=== PATIENT | female | born 1970 | race African-American/Black ===

== ENCOUNTER 2016-10-25 12:28 | Emergency (ER) | payer SELFPAY ==
[~2016-10-25] VITALS: Ht 162.6 cm; Wt 114.9 kg
[~2016-10-25 12:28] MED LIST: ATIVAN 0.50.5 MG/TAB PO; FLEXERIL 1010 MG/TAB PO; IBU600 MG PO; MULTIVITAMIN1 CTB PO; NAPROSYN500 MG PO; NORCO 325 MG-51 TAB PO; ULTRAM 50MG TAB50 MG PO
[2016-10-25 12:30] VITALS: BP 132/77; PULSE 86; TEMP 97.9
[2016-10-25 13:30] LABS: PH 5 (5-8); URINE APPEARANCE Hazy; URINE BACTERIA None Seen /hpf; URINE BILIRUBIN Negative (NEGATIVE); URINE BLOOD 1+ (NEGATIVE); URINE COLOR Yellow; URINE GLUCOSE Negative (NEGATIVE); URINE KETONE Negative (NEGATIVE)
[2016-10-25] MEDS ORDERED: FLEXERIL 1010 MG/TAB PO (14:02)
[2016-10-25] MEDS ORDERED: NORCO 325 MG-51 TAB PO (14:12)
== END 2016-10-25 14:21 | disposition home or self-care (01) ==
LOC: COL.ER 12:28
PROVIDERS: Physician Assistant
DX: M54.5 Low back pain (principal); R31.9 Hematuria, unspecified; M62.830 Muscle spasm of back; F17.210 Nicotine dependence, cigarettes, uncomplicated
CPT/HCPCS: J1885; J2360

== ENCOUNTER 2017-02-10 15:48 | Emergency (ER) | payer SELFPAY ==
[~2017-02-10] VITALS: Ht 162.6 cm; Wt 106.8 kg
[2017-02-10 15:54] VITALS: BP 125/72; TEMP 99
[2017-02-10 17:07] VITALS: PULSE 80
== END 2017-02-10 17:09 | disposition home or self-care (01) ==
LOC: COL.ER 15:48
DX: J11.1 Influenza due to unidentified influenza virus with other respiratory manifestations (principal); F17.210 Nicotine dependence, cigarettes, uncomplicated; Z98.890 Other specified postprocedural states

== ENCOUNTER 2017-05-27 07:22 | Emergency (ER) | payer SELFPAY ==
[~2017-05-27] VITALS: Ht 162.6 cm; Wt 93.6 kg
[2017-05-27 07:29] VITALS: TEMP 98.3
[2017-05-27] MEDS ORDERED: MIRALAX PA17 GM/Dose PO (08:03)
[2017-05-27 08:25] LABS: COLLECTION METHOD CLEAN CATCH
[2017-05-27 08:29] LABS: BASO % 0.4 % (0.0-2.0); EOS # 0.2 (0.0-0.7); EOS % 2.5 % (0-4.0); GRAN # 5.1 (1.4-6.5); GRAN % 71.3 % (42.2-75.2); HEMATOCRIT 38.3 % (37.0-47.0); HEMOGLOBIN 12.4 g/dl (12.5-16.0); LYMPH # 1.5 (1.2-3.4); LYMPH % 21.2 % (20.0-51.0); MEAN CELL VOLUME 102 fl (80.0-100.0); MEAN CORPUSCULAR HEMOGLOBIN 33 pg (27.0-31.0); MEAN CORPUSCULAR HGB CONC 32 g/dl (33.0-37.0); MONO # 0.3 (0.1-0.6); MONO % 4.5 % (1.7-9.3); PLATELET COUNT 212 K/mm3 (130-400); RED BLOOD COUNT 3.75 M/mm3 (4.10-5.30); REDCELL DISTRIBUTION WIDTH-CV 12.8 % (11.5-14.5)
[2017-05-27 08:37] LABS: MUCOUS Present /lpf; PH 5 (5-8); URINE APPEARANCE Hazy; URINE BACTERIA None Seen /hpf; URINE BILIRUBIN Negative (NEGATIVE); URINE BLOOD Negative (NEGATIVE); URINE COLOR Yellow; URINE GLUCOSE Negative (NEGATIVE); URINE KETONE Trace (NEGATIVE); URINE LEUKOCYTE ESTERASE Negative (NEGATIVE); URINE NITRATE Negative (NEGATIVE); URINE PROTEIN(semi-quant) Negative (NEGATIVE); URINE RBC 0-2 /hpf; URINE UROBILINOGEN >=4.0 mg/dL (NEGATIVE)
[2017-05-27 08:43] LABS: ALANINE AMINOTRANSFERASE 21 U/L (9-52); ALBUMIN 3.8 gm/dL (3.5-5.0); ALKALINE PHOSPHATASE 78 U/L (50-136); ANION GAP 11 mmol/L (7-16); AST,SGOT 18 U/L (15-37); BILIRUBIN,TOTAL 0.2 mg/dL (0.0-1.0); BLOOD UREA NITROGEN 9 mg/dL (7-17); CARBON DIOXIDE 29 mmol/L (22-30); CHLORIDE 107 mmol/L (98-107); CREATININE, serum 0.98 mg/dL (0.52-1.25); GLUCOSE 70 mg/dL (74-106); POTASSIUM 3.7 mmol/L (3.4-5.0); SODIUM 147 mmol/L (137-145); TOTAL PROTEIN 7.4 gm/dL (6.4-8.2)
[2017-05-27 08:47] LABS: C-REACTIVE PROTEIN < 0.5 mg/dL (0.0-0.9)
[2017-05-27] MEDS ORDERED: CONSTULOSE 20G/30ML PO (10:05)
[2017-05-27 10:45] VITALS: BP 120/77; PULSE 79
== END 2017-05-27 11:00 | disposition home or self-care (01) ==
LOC: COL.ER 07:22
PROVIDERS: Emergency Medicine
DX: K59.00 Constipation, unspecified (principal); F17.210 Nicotine dependence, cigarettes, uncomplicated; F12.90 Cannabis use, unspecified, uncomplicated; Z98.890 Other specified postprocedural states; Z88.0 Allergy status to penicillin
CPT/HCPCS: J2765; J7030

== ENCOUNTER 2017-09-09 07:37 | Emergency (ER) | payer SELFPAY ==
[~2017-09-09] VITALS: Ht 162.6 cm; Wt 86.4 kg
[~2017-09-09 07:37] MED LIST changes: +CONSTULOSE 20G/30ML PO; +MIRALAX PA17 GM/Dose PO
[2017-09-09 08:33] LABS: BASO % 0.4 % (0.0-2.0); EOS # 0.2 (0.0-0.7); EOS % 3.4 % (0-4.0); GRAN % 53.6 % (42.2-75.2); HEMOGLOBIN 13.1 g/dl (12.5-16.0); LYMPH # 2.2 (1.2-3.4); LYMPH % 38.5 % (20.0-51.0); MEAN CELL VOLUME 98 fl (80.0-100.0); MEAN CORPUSCULAR HEMOGLOBIN 33 pg (27.0-31.0); MEAN CORPUSCULAR HGB CONC 34 g/dl (33.0-37.0); MEAN PLATELET VOLUME 9.7 fl (7.4-10.4); MONO # 0.2 (0.1-0.6); MONO % 3.9 % (1.7-9.3); PLATELET COUNT 203 K/mm3 (130-400); RED BLOOD COUNT 3.99 M/mm3 (4.10-5.30); REDCELL DISTRIBUTION WIDTH-CV 12.6 % (11.5-14.5)
[2017-09-09 08:46] LABS: ALANINE AMINOTRANSFERASE 21 U/L (9-52); ALKALINE PHOSPHATASE 58 U/L (50-136); ANION GAP 10 mmol/L (7-16); AST,SGOT 19 U/L (15-37); BILIRUBIN,TOTAL 0.5 mg/dL (0.0-1.0); BLOOD UREA NITROGEN 11 mg/dL (7-17); CALCIUM 9.6 mg/dL (8.4-10.2); CARBON DIOXIDE 28 mmol/L (22-30); CHLORIDE 105 mmol/L (98-107); CREATINE KINASE 96 U/L (30-135); CREATININE, serum 0.85 mg/dL (0.52-1.25); GLUCOSE 89 mg/dL (74-106); MAGNESIUM 1.8 mg/dL (1.6-2.3); PHOSPHOROUS 3.7 mg/dL (2.5-4.5); POTASSIUM 3.8 mmol/L (3.4-5.0); SODIUM 142 mmol/L (137-145); TOTAL PROTEIN 7.7 gm/dL (6.4-8.2)
[2017-09-09 08:50] LABS: ACETAMINOPHEN < 10 ug/mL (10-30); ALCOHOL(ethanol),MEDICAL < 10 mg/dL; SALICYLATE < 1.0 mg/dL
[2017-09-09 09:10] VITALS: TEMP 98
[2017-09-09 09:15] LABS: TSH w REFLEX 0.848 uIU/mL (0.465-4.680)
[2017-09-09] MEDS ORDERED: ATIVAN 1MG T1 MG/TAB PO (12:07)
[2017-09-09 12:15] VITALS: BP 126/97; PULSE 74
== END 2017-09-09 12:18 | disposition home or self-care (01) ==
LOC: COL.ER 07:37
PROVIDERS: Emergency Medicine
DX: F31.9 Bipolar disorder, unspecified (principal); F12.90 Cannabis use, unspecified, uncomplicated
CPT/HCPCS: J7030

== ENCOUNTER 2017-10-24 16:01 | Emergency (ER) | payer SELFPAY ==
[~2017-10-24] VITALS: Ht 162.6 cm; Wt 95.5 kg
[~2017-10-24 16:01] MED LIST changes: +ATIVAN 1MG T1 MG/TAB PO
[2017-10-24 16:02] VITALS: TEMP 98.1
[2017-10-24] MEDS ORDERED: FLEXERIL 1010 MG/TAB PO (17:06)
[2017-10-24 17:15] VITALS: BP 120/94; PULSE 97
== END 2017-10-24 17:29 | disposition home or self-care (01) ==
LOC: COL.ER 16:01
DX: S09.90XA Unspecified injury of head, initial encounter (principal); S00.03XA Contusion of scalp, initial encounter; M54.2 Cervicalgia; K50.90 Crohn's disease, unspecified, without complications; W20.8XXA Other cause of strike by thrown, projected or falling object, initial encounter

== ENCOUNTER 2017-11-28 17:11 | Emergency (ER) | payer SELFPAY ==
[~2017-11-28] VITALS: Ht 162.6 cm; Wt 92.7 kg
[2017-11-28 19:56] LABS: BASO % 0.3 % (0.0-2.0); EOS # 0.2 (0.0-0.7); EOS % 2.8 % (0-4.0); GRAN # 3.6 (1.4-6.5); GRAN % 47.9 % (42.2-75.2); HEMATOCRIT 38.6 % (37.0-47.0); HEMOGLOBIN 12.9 g/dl (12.5-16.0); LYMPH # 3.2 (1.2-3.4); LYMPH % 42.9 % (20.0-51.0); MEAN CELL VOLUME 98 fl (80.0-100.0); MEAN CORPUSCULAR HEMOGLOBIN 33 pg (27.0-31.0); MEAN CORPUSCULAR HGB CONC 33 g/dl (33.0-37.0); MEAN PLATELET VOLUME 9.6 fl (7.4-10.4); MONO # 0.4 (0.1-0.6); MONO % 5.8 % (1.7-9.3); PLATELET COUNT 198 K/mm3 (130-400); RED BLOOD COUNT 3.93 M/mm3 (4.10-5.30); REDCELL DISTRIBUTION WIDTH-CV 12.4 % (11.5-14.5)
[2017-11-28 20:11] LABS: COLLECTION METHOD CLEAN CATCH
[2017-11-28 20:13] LABS: ALANINE AMINOTRANSFERASE 28 U/L (9-52); ALBUMIN 4.4 gm/dL (3.5-5.0); ALKALINE PHOSPHATASE 65 U/L (50-136); ANION GAP 8 mmol/L (7-16); AST,SGOT 22 U/L (15-37); BILIRUBIN,TOTAL 0.4 mg/dL (0.0-1.0); BLOOD UREA NITROGEN 15 mg/dL (7-17); CALCIUM 9.3 mg/dL (8.4-10.2); CARBON DIOXIDE 31 mmol/L (22-30); CHLORIDE 101 mmol/L (98-107); CREATININE, serum 0.88 mg/dL (0.52-1.25); GLUCOSE 105 mg/dL (74-106); POTASSIUM 3.7 mmol/L (3.4-5.0); SODIUM 140 mmol/L (137-145); TOTAL PROTEIN 8.6 gm/dL (6.4-8.2)
[2017-11-28 20:15] LABS: ACETAMINOPHEN < 10 ug/mL (10-30); ALCOHOL(ethanol),MEDICAL < 10 mg/dL; SALICYLATE < 1.0 mg/dL
[2017-11-28 20:20] LABS: MUCOUS Present /lpf; PH 5 (5-8); SQUAMOUS EPITHELIAL 0-2 /hpf; URINE APPEARANCE Hazy; URINE BACTERIA None Seen /hpf; URINE BILIRUBIN Negative (NEGATIVE); URINE BLOOD Negative (NEGATIVE); URINE COLOR Yellow; URINE GLUCOSE Negative (NEGATIVE); URINE KETONE Negative (NEGATIVE); URINE LEUKOCYTE ESTERASE Negative (NEGATIVE); URINE NITRATE Negative (NEGATIVE); URINE PROTEIN(semi-quant) Negative (NEGATIVE); URINE RBC 0-2 /hpf; URINE UROBILINOGEN Negative (NEGATIVE)
[2017-11-28 20:31] LABS: TRICYCLIC ANTIDEPRESS URINE NEGATIVE
[2017-12-01 11:59] VITALS: BP 121/82; PULSE 95; TEMP 98
== END 2017-12-01 12:32 ==
LOC: COL.ER 17:11
PROVIDERS: Nurse Practitioner
DX: R45.851 Suicidal ideations (principal); F31.9 Bipolar disorder, unspecified; K50.90 Crohn's disease, unspecified, without complications; F17.210 Nicotine dependence, cigarettes, uncomplicated; F12.90 Cannabis use, unspecified, uncomplicated; Z88.0 Allergy status to penicillin; Z98.890 Other specified postprocedural states

== ENCOUNTER 2018-08-12 21:20 | Emergency (ER) | payer SELFPAY ==
[~2018-08-12] VITALS: Ht 162.6 cm; Wt 113.6 kg
[2018-08-12 21:27] VITALS: TEMP 97.7
[2018-08-12] MEDS ORDERED: NORCO 325 MG-51 TAB PO (22:26)
[2018-08-12 23:00] VITALS: BP 118/71; PULSE 84
== END 2018-08-12 23:00 | disposition home or self-care (01) ==
LOC: COL.ER 21:20
DX: M54.41 Lumbago with sciatica, right side (principal); K50.90 Crohn's disease, unspecified, without complications; F17.210 Nicotine dependence, cigarettes, uncomplicated; F12.90 Cannabis use, unspecified, uncomplicated; Z88.0 Allergy status to penicillin; Z98.890 Other specified postprocedural states
CPT/HCPCS: J1885

== ENCOUNTER 2018-08-29 18:24 | Emergency (ER) | payer SELFPAY ==
[~2018-08-29] VITALS: Ht 162.6 cm; Wt 113.6 kg
[2018-08-29] MEDS ORDERED: FLEXERIL 1010 MG/TAB PO (20:55)
[2018-08-29 22:03] VITALS: BP 144/92; PULSE 87; TEMP 97.7
== END 2018-08-29 22:00 | disposition home or self-care (01) ==
LOC: COL.ER 18:24
DX: M54.42 Lumbago with sciatica, left side (principal); M54.41 Lumbago with sciatica, right side; F17.210 Nicotine dependence, cigarettes, uncomplicated; F31.9 Bipolar disorder, unspecified; K50.90 Crohn's disease, unspecified, without complications
CPT/HCPCS: J2270

== ENCOUNTER → 2018-08-29 | Emergency (ER) | payer SELFPAY ==
[~2018-08-29] VITALS: Ht 162.6 cm; Wt 113.6 kg
[2018-08-29 16:20] VITALS: BP 139/83; PULSE 66; TEMP 97.6
== END ==
LOC: COL.ER 15:59
DX: M54.5 Low back pain (principal)

== ENCOUNTER 2018-09-10 19:51 | Emergency (ER) | payer SELFPAY ==
[~2018-09-10] VITALS: Ht 162.6 cm; Wt 113.6 kg
[2018-09-10 20:11] VITALS: BP 141/72; TEMP 98.4
[2018-09-10] MEDS ORDERED: NORCO 325 MG-51 TAB PO (20:32)
[2018-09-10 20:42] VITALS: PULSE 81
== END 2018-09-10 20:42 | disposition home or self-care (01) ==
LOC: COL.ER 19:51
DX: M54.17 Radiculopathy, lumbosacral region (principal); F17.210 Nicotine dependence, cigarettes, uncomplicated; F12.90 Cannabis use, unspecified, uncomplicated

== ENCOUNTER → 2018-11-08 | Outpatient (CLI) | payer SELFPAY | LOC: COL.RAD 09:28 | DX: M51.34 Other intervertebral disc degeneration, thoracic region (principal) ==

== ENCOUNTER 2019-03-05 14:54 | Emergency (ER) | payer SELFPAY ==
[~2019-03-05] VITALS: Ht 162.6 cm; Wt 109.1 kg
[2019-03-05 14:58] VITALS: BP 110/68; TEMP 97.7
[2019-03-05] MEDS ORDERED: MEDROL 4MG DOSPA4 MG PO (15:45)
[2019-03-05] MEDS ORDERED: FLEXERIL 1010 MG/TAB PO (15:45)
[2019-03-05] MEDS ORDERED: NORCO 325 MG-51 TAB PO (15:45)
[2019-03-05 16:00] VITALS: PULSE 78
== END 2019-03-05 16:00 | disposition home or self-care (01) ==
LOC: COL.ER 14:54
DX: M54.41 Lumbago with sciatica, right side (principal); F31.9 Bipolar disorder, unspecified; K58.9 Irritable bowel syndrome, unspecified; F17.210 Nicotine dependence, cigarettes, uncomplicated; Z90.89 Acquired absence of other organs
CPT/HCPCS: J1885

== ENCOUNTER → 2019-03-18 | Outpatient (CLI) | payer SELFPAY ==
[~2019-03-18] MED LIST changes: +MEDROL 4MG DOSPA4 MG PO
== END ==
LOC: COL.RAD 14:00
DX: M47.816 Spondylosis without myelopathy or radiculopathy, lumbar region (principal)

== ENCOUNTER 2019-08-18 19:29 | Emergency (ER) | payer SELFPAY ==
[~2019-08-18] VITALS: Ht 162.6 cm; Wt 120.5 kg
[2019-08-18 19:50] VITALS: BP 138/84; TEMP 97.9
[2019-08-18 20:29] LABS: COLLECTION METHOD CLEAN CATCH
[2019-08-18] MEDS ORDERED: NORCO 325 MG-7.1 TAB PO (20:33)
[2019-08-18] MEDS ORDERED: DOXYCYCLINE 10100 MG PO (20:33)
[2019-08-18 20:40] LABS: MUCOUS Present /lpf; PH 5 (5-8); URINE APPEARANCE Hazy; URINE BACTERIA None Seen /hpf; URINE BILIRUBIN Negative (NEGATIVE); URINE BLOOD Negative (NEGATIVE); URINE COLOR Yellow; URINE GLUCOSE Negative (NEGATIVE); URINE KETONE Negative (NEGATIVE); URINE LEUKOCYTE ESTERASE Negative (NEGATIVE); URINE NITRATE Negative (NEGATIVE); URINE PROTEIN(semi-quant) Negative (NEGATIVE); URINE RBC 0-2 /hpf; URINE UROBILINOGEN >=4.0 mg/dL (NEGATIVE)
[2019-08-18 21:23] VITALS: PULSE 84
== END 2019-08-18 21:23 | disposition home or self-care (01) ==
LOC: COL.ER 19:29
PROVIDERS: Physician Assistant
DX: N90.89 Other specified noninflammatory disorders of vulva and perineum (principal); F31.9 Bipolar disorder, unspecified; R11.0 Nausea; Z87.39 Personal history of other diseases of the musculoskeletal system and connective tissue

== ENCOUNTER 2019-10-05 15:18 | Emergency (ER) | payer SELFPAY ==
[~2019-10-05] VITALS: Ht 162.6 cm; Wt 90.9 kg
[~2019-10-05 15:18] MED LIST changes: +DOXYCYCLINE 10100 MG PO; +NORCO 325 MG-7.1 TAB PO
[2019-10-05 15:21] VITALS: TEMP 98.2
[2019-10-05] MEDS ORDERED: FLEXERIL 1010 MG/TAB PO (16:16)
[2019-10-05 16:25] VITALS: BP 126/85; PULSE 82
== END 2019-10-05 16:26 | disposition home or self-care (01) ==
LOC: COL.ER 15:18
DX: M54.5 Low back pain (principal); G89.29 Other chronic pain; F17.210 Nicotine dependence, cigarettes, uncomplicated; Z79.891 Long term (current) use of opiate analgesic
CPT/HCPCS: J1885

== ENCOUNTER 2019-10-07 16:49 | Emergency (ER) | payer SELFPAY ==
[~2019-10-07] VITALS: Ht 165.1 cm; Wt 90.9 kg
[2019-10-07 16:56] VITALS: TEMP 97.5
[2019-10-07 17:52] VITALS: BP 125/85; PULSE 90
== END 2019-10-07 17:52 | disposition home or self-care (01) ==
LOC: COL.ER 16:49
DX: M54.5 Low back pain (principal); K50.90 Crohn's disease, unspecified, without complications; F17.210 Nicotine dependence, cigarettes, uncomplicated; Z90.49 Acquired absence of other specified parts of digestive tract

== ENCOUNTER 2020-10-15 18:47 | Emergency (ER) | payer SELFPAY ==
[~2020-10-15] VITALS: Ht 162.6 cm; Wt 93.2 kg
[2020-10-15 20:32] VITALS: BP 127/64; PULSE 80; TEMP 97.6
== END 2020-10-15 20:33 | disposition home or self-care (01) ==
LOC: COL.ER 18:47
DX: M21.41 Flat foot [pes planus] (acquired), right foot (principal); Z79.1 Long term (current) use of non-steroidal anti-inflammatories (NSAID)

== ENCOUNTER 2021-06-24 16:42 | Emergency (ER) | payer SELFPAY ==
[~2021-06-24] VITALS: Ht 162.6 cm; Wt 109.1 kg
[2021-06-24 17:03] VITALS: TEMP 98.4
[2021-06-24 18:48] VITALS: BP 137/79; PULSE 87
== END 2021-06-24 18:48 | disposition home or self-care (01) ==
LOC: COL.ER 16:42
DX: M79.10 Myalgia, unspecified site (principal); F17.200 Nicotine dependence, unspecified, uncomplicated

== ENCOUNTER 2022-12-30 09:15 | Emergency (ER) | payer SELFPAY ==
[~2022-12-30] VITALS: Ht 162.6 cm; Wt 118.2 kg
[2022-12-30 09:16] VITALS: TEMP 97.9
[2022-12-30 10:48] VITALS: PULSE 70
== END 2022-12-30 10:49 | disposition home or self-care (01) ==
LOC: COL.ER 09:15
PROVIDERS: Emergency Medicine
DX: S00.81XA Abrasion of other part of head, initial encounter (principal); M54.2 Cervicalgia; M54.9 Dorsalgia, unspecified; R07.9 Chest pain, unspecified; R10.84 Generalized abdominal pain; F17.210 Nicotine dependence, cigarettes, uncomplicated; Z90.49 Acquired absence of other specified parts of digestive tract; V89.2XXA Person injured in unspecified motor-vehicle accident, traffic, initial encounter; Y92.410 Unspecified street and highway as the place of occurrence of the external cause
CPT/HCPCS: Q9967